=== PATIENT | male | born 1940 | race Caucasian/White ===

== ENCOUNTER → 2022-03-08 12:53 | Outpatient (CLI) | payer MEDICARE, SELFPAY ==
--- NOTE | 2022-03-08 | DI.ECHO.S_ITS ---
[facility]---------+ [facility] +---------+ : : [address] : : : : [id number] : : : : Phone: [phone]+ Echocardiogram Report + + :Name: BARTOLO MARMOLEJO Study Date: 03/08/2022 Height: 70 in : :[facility] ReadingLocation: Weight: 195 lb : : Gender: Male BSA: 2.1 m2 : :: 1940 Age: 81 yrs BP: 158/69 mmHg: :Reason For Study: HEART FAILURE : :Ordering Physician: MARY : :ARY Performed By: Jossie Simpson : :Referring: RAY HERNANDEZ : + + Interpretation Summary Mild concentric left ventricular hypertrophy with ejection fraction 55-60%. Mildly dilated right ventricle with normal right ventricular systolic function. Severe biatrial enlargement. Mild mitral regurgitation. The ascending aorta is mildly enlarged. Procedure: A two-dimensional transthoracic echocardiogram with color flow and Doppler was performed. The study quality was technically difficult. A contrast injection of Definity was performed to improve assessment of LV function. There is no prior echocardiogram noted for this patient. The patient had frequent PVCs during the exam. The patient was in sinus bradycardia with heart rates between 42-50 bpm during the exam. Left Ventricle: The left ventricle is normal in size. There is mild concentric left ventricular hypertrophy. The ejection fraction is estimated to be 55-60%. There are no focal wall motion abnormalities. Right Ventricle: The right ventricle is mildly dilated. The right ventricular systolic function is normal. Atria: There is severe biatrial enlargement. There is no Doppler evidence for an interatrial shunt. Mitral Valve: The mitral valve is normal in structure and function. There is mild mitral regurgitation. Aortic Valve: The aortic valve is trileaflet. The aortic valve opens well. There is no aortic valve stenosis. No aortic regurgitation is present. Tricuspid Valve: The tricuspid valve is normal in structure and function. There is trace tricuspid regurgitation. The right ventricular systolic pressure is estimated to be at least 23 mmHg based on an estimated right atrial pressure of 3 mm Hg. Pulmonic Valve: The pulmonic valve leaflets are thin and pliable; valve motion is normal. There is mild pulmonic regurgitation. Great Vessels: The aortic root is normal size. The ascending aorta is mildly enlarged. The IVC is of normal diameter and collapses greater than 50% with a sniff. This suggests a low right atrial pressure of 3 mm Hg. Pericardium/ Pleura There is no pericardial effusion. There is no pleural effusion. MMode/2D Measurements & Calculations LVIDd: 5.3 cm LVOT diam: 2.3 cm LVIDs: 3.7 cm Ao root diam: 3.7 cm FS: 30.3 % asc Aorta Diam: 3.9 cm EPSS: 1.1 cm Ao Arch Diam (Prox Trans): 3.6 cm IVSd: 1.00 cm LVPWd: 1.1 cm LV arthur. diameter/BSA (cm/m^2): 2.5 LV sys. diameter/BSA (cm/m^2): 1.8 LA A2 area: 33.6 cm2 RA long axis: 6.3 cm LA A4 area: 34.2 cm2 RA area: 31.3 cm2 LA length (vol): 7.4 cm RA vol: 131.4 ml LA vol: 131.1 ml RA : 63.6 ml/m2 LA vol index: 63.5 ml/m2 IVC diam: 2.0 cm RVD1 (basal): 4.3 cm RVD2 (mid): 2.9 cm TAPSE: 2.3 cm Doppler Measurements & Calculations Ao V2 max: 140.1 cm/sec LVOT Max Matt: 121.2 cm/sec Ao V2 mean: 97.8 cm/sec LV V1 max P.9 mmHg Ao max P.8 mmHg LV V1 VTI: 26.9 cm Ao mean P.3 mmHg AUGUST(I,D): 3.4 cm2 Ao V2 VTI: 32.4 cm AUGUST(V,D): 3.5 cm2 sev ratio: 0.83 AUGUST indexed to BSA (cm^2/m^2): 1.6 MV E max matt: 69.0 cm/sec TR max matt: 222.2 cm/sec MV A max matt: 53.3 cm/sec TR max P.7 mmHg MV E/A: 1.3 PA V2 max: 96.1 cm/sec Med Peak E' Matt: 6.0 cm/sec PA V2 mean: 63.6 cm/sec E/E' med: 11.6 PA mean P.8 mmHg Lat Peak E' Matt: 6.4 cm/sec PA pr(Accel): 31.0 mmHg E/E' lat: 10.8 E/e' average: 11.2 MV dec time: 0.44 sec SV(LVOT): 109.5 ml Electronically signed by: Fozia navarro Reading Physician:03/08/2022 08:35 PM
== END ==
PROVIDERS: PCP Family Medicine; Referring Provider Family Medicine; Visit Provider Family Medicine
DX: I50.9 Heart failure, unspecified (principal); I51.7 Cardiomegaly; I34.0 Nonrheumatic mitral (valve) insufficiency
CPT/HCPCS: C8929; Q9957